=== PATIENT | female | born 2000 | race African-American/Black ===

== ENCOUNTER 2023-10-23 07:28 | Emergency (ER) | payer MEDICAID, OTHER ==
[~2023-10-23] VITALS: Ht 160 cm; Wt 69.0 kg
[2023-10-23 08:35] VITALS: BP 122/92; PULSE 81; RESP 16; TEMP 97.8; O2SAT 99
[2023-10-23] MEDS: HYDROcodone-ACET 5/325MG TAB PO ONE (08:55)
[2023-10-23] MEDS ORDERED: HYDR-4902 PO (09:25)
== END 2023-10-23 09:30 | disposition home or self-care (01) ==
LOC: ER 07:28
DX: S60.221A Contusion of right hand, initial encounter (principal); R68.84 Jaw pain; M54.2 Cervicalgia; Y04.2XXA Assault by strike against or bumped into by another person, initial encounter; Y93.89 Activity, other specified; Y92.89 Other specified places as the place of occurrence of the external cause; Y99.8 Other external cause status

== ENCOUNTER 2023-10-30 07:25 | Emergency (ER) | payer MEDICAID ==
[~2023-10-30] VITALS: Ht 160 cm; Wt 69.6 kg
[~2023-10-30 07:25] MED LIST: HYDR-4902 PO
[2023-10-30 07:43] VITALS: BP 144/87; PULSE 80; RESP 20; TEMP 98.6; O2SAT 100
[2023-10-30] MEDS ORDERED: CYCL-837 PO (08:02)
[2023-10-30] MEDS ORDERED: MELO7.5T7 PO (08:02)
== END 2023-10-30 08:09 | disposition home or self-care (01) ==
LOC: ER 07:25
DX: R68.84 Jaw pain (principal)

== ENCOUNTER 2024-01-28 06:30 | Emergency (ER) | payer MEDICAID ==
[~2024-01-28] VITALS: Ht 160 cm; Wt 70.1 kg
[~2024-01-28 06:30] MED LIST changes: +CYCL-837 PO; +MELO7.5T7 PO
[2024-01-28] MEDS: PROMETHAZINE W/CODEINE 5 ML ORAL SYRUP PO ONE (07:16)
[2024-01-28 07:17] VITALS: BP 112/71; PULSE 109; RESP 16; TEMP 98.1; O2SAT 97
--- NOTE | 2024-01-28 07:36 | ED.PDOC ---
SOB-HPI HPI Comments This is a pleasant 23-year-old female with no pertinent MHx that presents with a chief complaint of a nonproductive cough x7 days. Symptoms associated with intermittent nausea that comes and goes. Patient was seen at urgent care three days ago for the same complaint and was discharged with promethazine. Patient states viral swabs urinalysis and urine were negative. Patient's only concern is and medication does not provide adequate relief Cough comes and goes with no specific pattern Denies fevers chills night sweats unintentional weight loss Denies persistent chest pain, shortness of breath, leg swelling Denies history of asthma nor any breathing conditions Denies history of pneumonia Denies recent international travel Chief Complaint: Cough Time Seen by MD: 06:51 Primary Care Provider: UNKNOWN Reviewed notes: Nurses Notes, Medications, Allergies Information Source: Patient Mode of Arrival: Ambulatory Past Medical History PAST MEDICAL HISTORY: Denies Surgical History: Denies all surgeries 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 Family History Family History: Reviewed,noncontributory to illness Social History Smoker: Non-Smoker Alcohol: Denies ETOH Use Drugs: Denies Drug Use All Other Systems: Reviewed and Negative (per hpi) Physical Exam General Appearance: No Apparent Distress, Normal HEENT: Normal ENT Inspection, Pharynx Normal, TMs Normal Neck: Full Range of Motion, Non-Tender, Normal, Normal Inspection Respiratory: Chest Non-Tender, Lungs Clear, No Accessory Muscle Use, No Respiratory Distress, Normal Breath Sounds Cardiovascular: No Edema, No JVD, No Murmur, No Gallop, Normal Peripheral Pulses, Regular Rate/Rhythm Breast Exam: Deferred Gastrointestinal: No Organomegaly, Non Tender, No Pulsatile Mass, Normal Bowel Sounds, Soft Genitalia: Deferred Pelvic: Deferred Rectal: Deferred Extremities: No calf tenderness, Normal capillary refill, Normal inspection, Normal range of motion, Non-tender, No pedal edema Musculoskeletal : Apperance: Normal Neurologic: Alert, director of software development II-XII nml as Tested, No Motor Deficits, Normal Affect, Normal Mood, No Sensory Deficits Cerebellar Function: Normal Reflexes: Normal Skin: Dry, Normal Color, Warm Lymphatic: No Adenopathy Was a procedure done? Was a procedure done?: No Differential Dx Differential Diagnosis: Bronchitis X-Ray, Labs, Meds, VS Vital Signs Date Time Temp Pulse Resp B/P (MAP) Pulse Ox O2 Delivery O2 Flow Rate FiO2 01/28/24 07:17 98.1 109 16 112/71 (85) 97 98.1 01/28/24 07:02 109 16 97 Room Air 01/28/24 06:40 98.1 109 16 112/71 (85) 97 Current Medications Medications (Trade) Dose Ordered Sig/Wiley Route Start Time Stop Time Status Last Admin Promethazine HCl/ Codeine (Phenergan W/ Codeine) 5 ml ONCE ONCE PO 01/28/24 07:15 01/28/24 07:16 DC 01/28/24 07:16 Ondansetron HCl (Zofran) 4 mg ONCE ONCE IM 01/28/24 07:30 01/28/24 07:31 DC 01/28/24 07:39 Dexamethasone Sodium Phosphate (Decadron Injection) 10 mg ONCE ONCE IM 01/28/24 07:30 01/28/24 07:31 DC 01/28/24 07:38 X-Ray, Labs, Meds, VS Comment History and physical consistent bronchitis Take medication as prescribed No concerns for pneumonia at this time. No risk factors. No indication for antibiotics Discussed that cough can linger up to 6 weeks after viral URI ED precautions if cough does not alleviate or if cough worsens Supportive care and return precautions discussed Counseled viral infection and explained that antibiotics would not be helpful in resolving the illness sooner. Recommended vitamin C, rest, handwashing, and symptomatic care. Expect 2-week course with possibly of cough lingering up to 6 weeks. Nonpharmacological remedies for fluids has been recommended as well Patient is stable for discharge at this time. External notes reviewed. Test results and diagnostic imaging interpreted. All diagnostic findings, discharge care, education and instructions provided Follow-up with PCP in 2 to 3 days Patient verbalized understanding and agreed to treatment plan Vital signs stable, afebrile, no acute distress noted Patient ambulatory with strong steady gait Advised to return precautions for any new or worsening symptoms, return to ER immediately for re-evaluation Patient is aware that the purpose of this visit was for an acute medical emergency requiring emergent stabilization. Chronic conditions, including malignancies have not been ruled out. Patient is instructed to follow up with PCP as directed and discharge instructions for continued care and workup. If unable to arrange follow-up, patient is to return to the emergency department for reassessment. Patient (parent or legal guardian if applicable) was given verbal and written discharge instructions and acknowledges understanding. Time of 1ST Reevaluation: 07:36 Reevaluation 1ST: Improved Patient Education/Counseling: Diagnosis, Treatment Family Education/Counseling: Diagnosis, Treatment Departure 1 Departure Time of Disposition: 08:20 Impression: Primary Impression: Bronchitis Disposition: 01 HOME / SELF CARE / HOMELESS Condition: Stable e-Prescriptions Ondansetron HCl (Ondansetron) 4 Mg Tab 4 MG PO BIDP PRN for 2 Days, #4 TAB 0 Refills Prov: GENARO ARTHUR NP 01/28/24 Benzonatate (Benzonatate) 100 Mg Cap 1 CAP PO TID for 10 Days, #30 CAP 0 Refills Prov: GENARO ARTHUR NP 01/28/24 Discharged With: Self Critical Care Note Critical Care Time?: No Stability Stability form required: No Heart Score Heart Score: Heart Score Response (Comments) Value History N/A 0 EKG N/A 0 Age N/A 0 Risk Factors N/A 0 Troponin N/A 0 Total 0 GENARO ARTHUR NP Jan 28, 2024 07:36
[2024-01-28] MEDS: DexAMETHasone SOD PHOS 10MG/1ML VIAL INJ IM ONE (07:38)
[2024-01-28] MEDS: ONDANSETRON HCL 4 MG/2 ML VIAL IM ONE (07:39)
[2024-01-28] MEDS ORDERED: BENZ100C97 PO (08:24)
[2024-01-28] MEDS ORDERED: GUAI1SOL3 PO (08:24)
[2024-01-28] MEDS ORDERED: ONDA-155 PO (08:24)
== END 2024-01-28 08:34 | disposition home or self-care (01) ==
LOC: ER 06:30
DX: J40 Bronchitis, not specified as acute or chronic (principal)
CPT/HCPCS: 96372; 99284; J1100; J2405

== ENCOUNTER 2024-01-30 12:15 | Emergency (ER) | payer MEDICAID ==
[~2024-01-30] VITALS: Ht 162.6 cm; Wt 70.0 kg
[~2024-01-30 12:15] MED LIST changes: +BENZ100C97 PO; +GUAI1SOL3 PO; +ONDA-155 PO
[2024-01-30] MEDS: SODIUM CHLORIDE 0.9% 500 ML IVB ONE (13:30)
--- NOTE | 2024-01-30 13:50 | DVH ---
ULTRASOUND ABDOMEN LIMITED INDICATION: pain TECHNIQUE: Multiple real-time sonographic images of the abdomen were obtained. COMPARISON: None FINDINGS: The visualized liver parenchyma appears homogenous . The liver measures 14.6 cm. No discrete hep atic lesion or intrahepatic biliary ductal dilatation is identified. There is no evidence of gallstones, gallbladder wall thickening or pericholecystic fluid. The common biliary duct is not dilated. The right kidney measures 4.0 cm length. No sonographic evidence of nephrolithiasis or hydronephros is. Visualized portions of the pancreas appears within normal limits. IMPRESSION: 1. Unremarkable righ upper quadrant ultrasound. HS:Y
[2024-01-30] MEDS: PANTOPRAZOLE 40 MG/10 ML VIAL INJ IV ONE (14:05)
[2024-01-30] MEDS: ONDANSETRON HCL 4 MG/2 ML VIAL IV ONE (14:05)
[2024-01-30] MEDS: MORPHINE SULFATE 4 MG/ML SYR/VIAL IV ONE (14:06)
[2024-01-30 14:18] LABS: Basophils # (auto) 0 10 ^3/uL (0-0.2); Basophils % (auto) 0.1 % (0.0-2.0); Eosinophils # (auto) 0 10 ^3/uL (0-0.8); Eosinophils % (auto) 0.2 % (0.0-7.0); Hemoglobin 12.9 g/dL (12.2-16.2)
[2024-01-30 14:19] LABS: Hematocrit 37.1 % (36.0-46.0); Lymphocytes # (auto) 1.7 10 ^3/uL (0.4-5.4); Lymphocytes % (auto) 15.7 % (10.0-50.0); Mean Corpuscular Hemoglobin 31.8 pg (28.0-32.0); Mean Corpuscular Hgb Conc. 34.8 g/dL (32.0-36.0); Mean Corpuscular Volume 91.3 fL (80.0-100.0); Monocytes # (auto) 0.8 10 ^3/uL (0-1.3); Monocytes % (auto) 7.2 % (0.0-12.0); Neutrophils # (auto) 8.2 10 ^3/uL (1.6-8.6); Neutrophils % (auto) 76.8 % (37.0-80.0); Nucleated Red Blood Cells % 0.1 %; Platelet Count (auto) 520 10^3/uL (140-450); Red Blood Cells 4.07 10^6/uL (4.0-5.20); Red Cell Distribution Width 12.9 % (11.8-14.3); White Blood Cell 10.7 10^3/uL (4.4-10.8)
[2024-01-30 14:36] LABS: Alanine Aminotransferase 16 U/L (7-40); Albumin 4.4 g/dL (3.2-4.8); Alkaline Phosphatase 65 U/L (46-116); Anion Gap 11 (5-15); BUN/Creatinine Ratio 9.3 (10.0-20.0); Calcium 10.1 mg/dL (8.7-10.4); Carbon Dioxide 24 mmol/L (20-31); Chloride 105 mmol/L (98-107); Glucose 83 mg/dL (74-106); Sodium 140 mmol/L (136-145)
[2024-01-30 14:37] LABS: Bilirubin, Total 0.2 mg/dL (0.2-1.0)
[2024-01-30 14:44] LABS: Aspartate Aminotransferase 11 U/L (13-40); Blood Urea Nitrogen 7 mg/dL (9-23)
--- NOTE | 2024-01-30 17:29 | ED.PDOC ---
History of Present Illness HPI Comments This is a 23-year-old female who comes in with chief complaint of for any quadrant pain. The patient states that the pain started this morning. She states that the pain is a 10/10. She describes it as burning in nature. She denies any history of this in the past. The patient was able to ambulate in the emergency department's without any difficulty. Chief Complaint: Abdominal Pain Time Seen by MD: 12:22 Primary Care Provider: CHANELL Guadarrama Notes: Nurses Notes, Medications, Allergies (No allergies to medications) Allergies: Coded Allergies: NO KNOWN ALLERGIES (Unverified , 10/23/23) Home Meds Active Scripts Ondansetron Odt 4MG Tab (ZOFRAN PO) 4 Mg Tb, 4 MG PO Q8HP PRN for 5 Days, #15 TAB ODT TAB-DISSOLVE IN MOUTH, THEN SWALLOW Prov:FOREIGN HUYNH MD 01/30/24 Pantoprazole Sodium Sesquihydr (Protonix) 40 Mg Tab, 40 MG PO DAILY, #30 TAB Prov:FOREIGN HUYNH MD 01/30/24 Ondansetron HCl (Ondansetron) 4 Mg Tab, 4 MG PO BIDP PRN for 2 Days, #4 TAB 0 Refills Prov:GENARO ARTHUR NP 01/28/24 Benzonatate (Benzonatate) 100 Mg Cap, 1 CAP PO TID for 10 Days, #30 CAP 0 Refills Prov:GENARO ARTHUR NP 01/28/24 Meloxicam (Meloxicam) 7.5 Mg Tab, 1 TAB PO DAILYP PRN for 30 Days, #30 TAB 0 Refills Prov:GENARO ARTHUR NP 10/30/23 Cyclobenzaprine Hcl (Cyclobenzaprine Hcl) 5 Mg Tab, 1 TAB PO QHSP PRN for 30 Days, #30 TAB 0 Refills Prov:GENARO ARTHUR NP 10/30/23 Hydrocodone-Acetaminophen (Hydrocodone Bitartrate/AC 5-325 mg) 1 Tab Tab, 1 TAB PO Q6HPRN PRN, #10 TAB Prov:PAMELA WILSON PAC 10/24/23 Reported Medications Guaifenesin-Codeine (Codeine/Guaifenesin 100-10 mg/5Ml) 1 Letitia Letitia, 5 ML PO Q6HPRN PRN for 5 Days, #100 ML 0 Refills 01/28/24 Information Source: Patient Mode of Arrival: Ambulatory Severity: Mild Timing: Hours Duration: Since onset Prehospital treatment: None Location: Right upper quadrant pain Associated signs and symptoms The patient was complaining of some nausea but no vomiting Past Medical History PAST MEDICAL HISTORY: Denies Surgical History: Denies all surgeries 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 Family History Family History: Reviewed,noncontributory to illness Social History Smoker: Non-Smoker Alcohol: Occasionally Drugs: Marijuana Lives In: Home Constitutional: denies: chills, diaphoresis, fatigue, fever, malaise, sweats, weakness, others EENTM: denies: blurred vision, double vision, ear bleeding, ear discharge, ear drainage, ear pain, ear ringing, eye pain, eye redness, hearing loss, mouth pain, mouth swelling, nasal discharge, nose bleeding, nose congestion, nose pain, photophobia, tearing, throat pain, throat swelling, voice changes, others Respiratory: denies: cough, hemoptysis, orthopnea, SOB at rest, shortness of breath, SOB with excertion, stridor, wheezing, others Cardiovascular: denies: chest pain, dizzy spells, diaphoresis, Dyspnea on exertion, edema, irregular heart beat, left arm pain, lightheadedness, pa lpitations, PND, syncope, others Gastrointestinal: reports: abdominal pain; denies: abdomen distended, blood streaked bowels, constipated, diarrhea, dysphagia, difficulty swallowing, hematemesis, melena, nausea, poor appetite, poor fluid intake, rectal bleeding, rectal pain, vomiting, others Genitourinary: denies: abnormal vagina bleeding, burning, dyspareunia, dysuria, flank pain, frequency, hematuria, incontinence, pain, , vagina dis charge, urgency, others Neurological: denies: dizziness, fainting, headache, left sided numbness, left sided weakness, numbness, paresthesia, pre-existing deficit, right sided numbness, right sided weakness, seizure, speech problems, tingling, tremors, weakness, others Musculoskeletal: denies: back pain, gout, joint pain, joint swelling, muscle pain, muscle stiffness, neck pain, others Integumetry: denies: bruises, change in color, change in hair/nails, dryness, laceration, lesions, lumps, rash, wounds, others Allergic/Immunocompromised: denies: Difficulty Healing, Frequent Infections, Hives, Itching, others Hematologic/Lymphatic: denies: anemia, blood clots, easy bleeding, easy bruising, swollen glands, others Endocrine: denies: excessive hunger, excessive sweating, excessive thirst, excessive urination, flushing, intolerance to cold, intolerance to heat, unexplained weight gain, unexplained weight loss, others Psychiatric: denies: anxiety, bipolar disorder, depression, hopeless, panic disorder, schizophrenia, sleepless, suicidal, others Physical Exam General Appearance: Moderate Distress HEENT: Normal ENT Inspection, Pharynx Normal, TMs Normal Neck: Full Range of Motion, Non-Tender, Normal, Normal Inspection Respiratory: Chest Non-Tender, Lungs Clear, No Accessory Muscle Use, No Respiratory Distress, Normal Breath Sounds Cardiovascular: No Edema, No JVD, No Murmur, No Gallop, Normal Peripheral Pulses, Regular Rate/Rhythm Breast Exam: Deferred Gastrointestinal: No Organomegaly, No Pulsatile Mass, Normal Bowel Sounds, RUQ, Soft, Tenderness Genitalia: Deferred Pelvic: Deferred Rectal: Deferred Extremities: No calf tenderness, Normal capillary refill, Normal inspection, Normal range of motion, Non-tender, No pedal edema Musculoskeletal : Apperance: Normal Neurologic: Alert, edge cutter II-XII nml as Tested, No Motor Deficits, Normal Affect, Normal Mood, No Sensory Deficits Cerebellar Function: Normal Reflexes: Normal Skin: Dry, Normal Color, Warm Lymphatic: No Adenopathy Was a procedure done? Was a procedure done?: No Differential Dx Considerations may include: Appendicitis, gallstones X-Ray, Labs, Meds, VS Vital Signs Date Time Temp Pulse Resp B/P (MAP) Pulse Ox O2 Delivery O2 Flow Rate FiO2 01/30/24 14:22 98.0 75 15 108/69 (82) 98 98.0 01/30/24 14:21 75 15 108/69 01/30/24 14:06 83 18 122/68 01/30/24 13:39 83 18 94 Room Air 01/30/24 13:39 83 18 122/68 (86) 94 01/30/24 12:33 97.8 89 20 132/95 (107) 100 Lab Test 01/30/24 13:59 Range/Units White Blood Count 10.7 4.4-10.8 10^3/uL Red Blood Count 4.07 4.0-5.20 10^6/uL Hemoglobin 12.9 12.2-16.2 g/dL Hematocrit 37.1 36.0-46.0 % Mean Corpuscular Volume 91.3 80.0-100.0 fL Mean Corpuscular Hemoglobin 31.8 28.0-32.0 pg Mean Corpuscular Hemoglobin Concent 34.8 32.0-36.0 g/dL Red Cell Distribution Width 12.9 11.8-14.3 % Platelet Count 520 H 140-450 10^3/uL Mean Platelet Volume 7.0 6.9-10.8 fL Neutrophils (%) (Auto) 76.8 37.0-80.0 % Lymphocytes (%) (Auto) 15.7 10.0-50.0 % Monocytes (%) (Auto) 7.2 0.0-12.0 % Eosinophils (%) (Auto) 0.2 0.0-7.0 % Basophils (%) (Auto) 0.1 0.0-2.0 % Neutrophils # (Auto) 8.2 1.6-8.6 10 ^3/uL Lymphocytes # (Auto) 1.7 0.4-5.4 10 ^3/uL Monocytes # (Auto) 0.8 0-1.3 10 ^3/uL Eosinophils # (Auto) 0 0-0.8 10 ^3/uL Basophils # (Auto) 0 0-0.2 10 ^3/uL Nucleated Red Blood Cells 0.1 % Sodium Level 140 136-145 mmol/L Potassium Level 4.0 3.5-5.1 mmol/L Chloride Level 105 98-107 mmol/L Carbon Dioxide Level 24 20-31 mmol/L Anion Gap 11 5-15 Blood Urea Nitrogen 7 L 9-23 mg/dL Creatinine 0.75 0.550-1.02 mg/dL Glomerular Filtration Rate Calc 115 >90 mL/min BUN/Creatinine Ratio 9.3 L 10.0-20.0 Serum Glucose 83 74-106 mg/dL Calcium Level 10.1 8.7-10.4 mg/dL Total Bilirubin 0.2 0.2-1.0 mg/dL Aspartate Amino Transferase (AST) 11 L 13-40 U/L Alanine Aminotransferase (ALT) 16 7-40 U/L Alkaline Phosphatase 65 46-116 U/L Total Protein 7.0 5.7-8.2 g/dL Albumin 4.4 3.2-4.8 g/dL Beta HCG, Quantitative < 0.0 L 1.5-4.2 mIU/mL Current Medications Medications (Trade) Dose Ordered Sig/Wiley Route Start Time Stop Time Status Last Admin Ondansetron HCl (Zofran) 4 mg ONCE ONCE IV 01/30/24 13:30 01/30/24 13:31 DC 01/30/24 14:05 Morphine Sulfate 4 mg ONCE ONCE IV 01/30/24 13:30 01/30/24 13:31 DC 01/30/24 14:06 Sodium Chloride 500 ml @ 500 mls/hr Q1H ONCE IVB 01/30/24 13:30 01/30/24 14:29 DC 01/30/24 13:30 Pantoprazole Sodium (Protonix) 40 mg ONCE ONCE IV 01/30/24 13:30 01/30/24 13:31 DC 01/30/24 14:05 The patient's CBC and chemistry panel are within normal limits The quantitative hCG is negative The patient was given morphine 4 mg IV push for the pain The patient was given Zofran 4 mg IV push The patient was given Protonix 40 mg IV push At this time the patient's ultrasound was done but shows no sign of any gallstones or any other abnormalities. The patient was being discharged at this time The patient was given a prescription for Protonix and Zofran Images Reviewed?: Images reviewed and evaluated by me Time of 1ST Reevaluation: 17:25 Reevaluation 1ST: Unchanged Patient Education/Counseling: Diagnosis, Treatment, Prognosis, Need For Follow Up Family Education/Counseling: No Family Present Departure 1 Departure Time of Disposition: 17:27 Impression: Primary Impression: Acute abdominal pain Additional Impression: Gastritis Qualified Codes: K29.00 - Acute gastritis without bleeding Disposition: 01 HOME / SELF CARE / HOMELESS Condition: Fair e-Prescriptions Ondansetron Odt 4MG Tab (ZOFRAN PO) 4 Mg Tb 4 MG PO Q8HP PRN for 5 Days, #15 TAB ODT TAB-DISSOLVE IN MOUTH, THEN SWALLOW Prov: FOREIGN HUYNH MD 01/30/24 Pantoprazole Sodium Sesquihydr (Protonix) 40 Mg Tab 40 MG PO DAILY, #30 TAB Prov: FOREIGN HUYNH MD 01/30/24 Discharged With: Self Critical Care Note Critical Care Time?: No Stability Stability form required: No Heart Score Heart Score: Heart Score Response (Comments) Value History N/A 0 EKG N/A 0 Age N/A 0 Risk Factors N/A 0 Troponin N/A 0 Total 0 FOREIGN HUYNH MD Jan 30, 2024 17:29
[2024-01-30] MEDS ORDERED: ZOFR4T PO (17:30)
[2024-01-30] MEDS ORDERED: PANT40TA2 PO (17:30)
[2024-01-30 17:39] VITALS: BP 125/77; PULSE 79; RESP 18; TEMP 98.6; O2SAT 99
== END 2024-01-30 17:47 | disposition home or self-care (01) ==
LOC: ER 12:15
DX: K29.00 Acute gastritis without bleeding (principal); R10.2 Pelvic and perineal pain; F15.90 Other stimulant use, unspecified, uncomplicated; Z79.899 Other long term (current) drug therapy
CPT/HCPCS: 36415; 76705; 80053; 84702; 85025; 96361; 96374; 96375; 99285; J2270; J2405; J2470; J7040